=== PATIENT | female | born 1995 | race Caucasian/White ===

== ENCOUNTER 2021-07-08 09:06 | Emergency (ER) | payer OTHER, SELFPAY ==
[2021-07-08] VITALS (25 sets, daily range): BP systolic 112–139; BP diastolic 62–92; PULSE 74–96; RESP 13–21; TEMP 37.1; O2SAT 98–100
--- NOTE | ~2021-07-08 | XR_ITS ---
EXAMINATION: XR chest 1V portable DATE: 07/08/2021 11:00 INDICATION: Fever and fatigue TECHNIQUE: frontal view of the chest was obtained. COMPARISON: Chest radiograph dated 02/08/2015 FINDINGS: The lungs remain clear with no focal airspace opacities, pulmonary edema, pleural effusion or pneumot horax. The cardiomediastinal silhouette is normal. Mild thoracic dextrocurvature. IMPRESSION: 1. No acute cardiopulmonary disease. Reviewed, dictated and finalized at location A.
--- NOTE | 2021-07-08 09:40 | ECG_ITS ---
Measurements Intervals [place] Rate: 70 P: 23 [place]: 189 QRS: 31 QRSD: 87 T: 8 QT: 369 QTc: 400 Interpretive Statements SINUS RHYTHM MINIMAL Q WAVES- INFERIOR LEADS BORDERLINE ST-T WAVE ABNORMALITY- INFERIOR LEADS BORDERLINE ECG Electronically Signed On 07-08-2021 11:28:06 CDT by Suresh Rand D.O.
--- NOTE | 2021-07-08 09:40 | PC.NURSE ---
EDP at bedside to assess pt.
--- NOTE | 2021-07-08 09:51 | ED.GENADULT ---
HPI - General Adult General Chief complaint: Unspecified Stated complaint: Multiple Complaints, Weird Symptoms Time Seen by Provider: 07/08/21 09:14 Source: patient Mode of arrival: ambulatory Limitations: no limitations History of Present Illness HPI narrative: This is a 25 year old female that presents to the ER with multiple complaints. Ongoing since yesterday. Reports low grade fevers, fatigue, myalgias, lightheadedness and right sided flank pain. Reports the pain feels more superficial, like her skin is sensitive and radiates into her RLQ. Does report she did an at home COVID test which was negative. She is COVID vaccinated, she is not influenza vaccinated. Denies sore throat, cough, vomiting, dysuria or hematuria. Related Data Allergies Allergy/AdvReac Type Severity Reaction Status Date / Time No Known Allergies Allergy Unknown Verified 07/08/21 09:37 Review of Systems Review of Systems: CONSTITUTIONAL: Reports fever ENT: Denies congestion, sore throat RESPIRATORY: Denies cough or dyspnea. GASTROINTESTINAL: Reports abdominal pain. Denies nausea, vomiting, or diarrhea. GENITOURINARY: Denies dysuria or hematuria. SKIN: Denies rash MUSCULOSKELETAL: Reports myalgia. All systems reviewed & are unremarkable except as noted in HPI and below PMFSH Past Medical History Medical History (Updated 07/08/21 @ 12:33 by Tete Cotter PA-C) History of acne Social History Social History (Updated 07/08/21 @ 09:56 by Tete Cotter PA-C) Smoking status: Never smoker Alcohol intake: never Substance use: never Exam Narrative: GENERAL: Well-appearing, well-nourished, and in no acute distress. HEAD: Normocephalic, atraumatic. EYES: EOMI. CHEST: Clear to auscultation. No respiratory distress. No wheezes rales or rhonchi HEART: Regular rate and rhythm. No murmur heard. Normal peripheral pulses. ABDOMEN: Soft, nondistended, normal active bowel sounds. Mild tenderness to palpation in the RLQ, without guarding EXTREMITIES: Normal range of motion. No edema. SKIN: Warm, dry, no rash. NEURO: No focal deficits. Alert and oriented x3. PSYCH: Normal mood and affect Course Vital Signs Vital signs: Vital Signs Temperature 98.7 F 07/08/21 09:27 Pulse Rate 87 07/08/21 09:27 Respiratory Rate 14 07/08/21 09:27 Blood Pressure 118/80 07/08/21 09:27 Pulse Oximetry 99 07/08/21 09:27 Temperature 98.7 F 07/08/21 09:27 Pulse Rate 75 07/08/21 12:27 Respiratory Rate 13 07/08/21 12:27 Blood Pressure 126/68 07/08/21 11:20 Pulse Oximetry 100 07/08/21 12:27 Medical Decision Making MDM Narrative Medical decision making narrative: Patient presents to the emergency department with multiple complaints. Reporting fevers, myalgias, fatigue, and some right-sided flank pain. She is afebrile and nontoxic-appearing. Her vitals are stable. CBC shows leukopenia. Metabolic panel and lipase without concerning findings. UA without evidence of infection. Influenza, COVID and mono screens were negative. Bedside test is negative. Chest x-ray without acute cardiopulmonary abnormality. Patient did refuse CT scan of the abdomen and pelvis to further delineate cause of right-sided flank pain. Spoke with patient about reasoning for doing so. She reports she will return for any worsening symptoms. Spoke with patient about continued management of likely viral infection. She is to follow-up with primary care doctor. She was given warnings to return to the ER Vital Signs Vital Signs: Vital Signs Temperature 98.7 F 07/08/21 09:27 Pulse Rate 87 07/08/21 09:27 Respiratory Rate 14 07/08/21 09:27 Blood Pressure 118/80 07/08/21 09:27 Pulse Oximetry 99 07/08/21 09:27 Temperature 98.7 F 07/08/21 09:27 Pulse Rate 75 07/08/21 12:27 Respiratory Rate 13 07/08/21 12:27 Blood Pressure 126/68 07/08/21 11:20 Pulse Oximetry 100 07/08/21 12:27 Lab Data Lab results reviewed: Yes I
[2021-07-08 10:01] LABS: Eosinophils Absolute Auto 0.2 K/mm3 (0-0.3); Eosinophils Percent Auto 3.9 % (0-4.4); Hematocrit 46.1 % (37.0-47.0); Hemoglobin 14.8 g/dL (12.0-15.0); Immature Granulocyte Absolute 0.01 K/mm3 (0.00-0.031); Immature Granulocyte Percent A 0.2 % (0-0.5); Lymphocytes Absolute Auto 1.09 K/mm3 (0.9-3.2); Lymphocytes Percent Auto 26.7 % (18.3-44.2); Mean Corpuscular HGB Conc 32.1 g/dl (32-36); Mean Corpuscular Hemoglobin 28.2 pg (26-34); Mean Corpuscular Volume 87.8 fl (80-100); Mean Platelet Volume 9.3 fl (7.4-10.4); Monocytes Absolute Auto 0.5 K/mm3 (0.1-0.6); Monocytes Percent Auto 13.2 % (2.6-8.5); Neutrophils Absolute Auto 2.2 K/mm3 (1.3-6.7); Platelet Count Result 229 k/mm3 (150-375); Red Blood Count 5.25 M/mm3 (4.2-5.4); White Blood Count 4.1 K/mm3 (4.5-10.0)
[2021-07-08] MEDS: SODIUM CHLORIDE 0.9% IV 1,000 ML 999 ML IV CONT (10:05)
[2021-07-08 10:12] LABS: Alanine Aminotransferase 25 U/L (6-35); Albumin Level 4.7 g/dL (3.5-5.1); Alkaline Phosphatase 95 U/L (38-126); Anion Gap 9 mmol/L (8-16); Aspartate Amino Transferase 28 U/L (14-36); Bilirubin,Total 0.2 mg/dL (0.2-1.3); Blood Urea Nitrogen 13 mg/dL (7-17); Carbon Dioxide 22 mmol/L (22-30); Chloride 106 mmol/L (98-107); Estimated CRCL calculation 92 ml/min; Estimated Glomerular Filt Rate > 60; Glucose 101 mg/dL (65-110); Lipase 77 U/L (23-300); Potassium 4.6 mmol/L (3.4-5.0); Sodium 137 mmol/L (137-145)
[2021-07-08 10:19] LABS: Bacteria Urine Trace /hpf; Mucus Urine Rare /lpf; Squamous Epithelial Cell Urine Occasional /hpf (Few); WBC Urine 0-3 /hpf
[2021-07-08 10:21] LABS: Appearance Urine Clear (Clear); Bilirubin Urine Negative (Negative); Color Urine Yellow (Yellow); Glucose Urine UA Negative (Negative); Ketones Urine Negative (Negative); Leukocyte Esterase Ur Trace LEU/UL (Negative); Nitrate Urine Negative (Negative); Protein Urine Negative (Negative); Urobilinogen Urine 0.2 mg/dL (<2.0)
[2021-07-08 10:23] LABS: Add Urine Microscopic? YES; Blood Urine Trace-Intact (Negative)
[2021-07-08 10:39] LABS: Influenza A QL RT-PCR Negative (Negative); Influenza B QL RT-PCR Negative (Negative); SARS-CoV-2 RNA PCR Negative
[2021-07-08 11:59] LABS: Monoscreen Negative (Negative); Negative Monotest Control Negative (Negative); Positive Monotest Control Positive (Positive)
--- NOTE | 2021-07-08 12:33 | PC.NURSE ---
Patient reports that she is feeling much better. Reports resolution of all symptoms at this time. States maybe it was just a 24 hour bug . Call-light within reach and family at bedside. Awaiting further orders or disposition.
== END 2021-07-08 12:47 | disposition home or self-care (01) ==
PROVIDERS: Physician Assistant; Emergency Provider Emergency Medicine
DX: B34.9 Viral infection, unspecified (principal); Z20.822 Contact with and (suspected) exposure to COVID-19
CPT/HCPCS: 36415; 71045; 80053; 81001; 81025; 83690; 85025; 86308; 87502; 93005; 96361; 96374; 99284; C9803; J0131; J7030; U0003; U0005

== ENCOUNTER 2022-03-06 10:42 | Outpatient (CLI) | payer OTHER, SELFPAY ==
--- NOTE | ~2022-03-06 | US_ITS ---
EXAMINATION: US axilla RT INDICATION: Painful lump of the right axilla TECHNIQUE: Targeted ultrasound is performed in the right axilla in the area of clinical concern. COMPARISON: None available FINDINGS: There appears to be a right axillary lymph node with normal morphology corresponding to the area of palpable concern. No suspicious cystic or solid mass is identified. IMPRESSION: 1. No suspicious sonographic correlate is identified for the reported palpable abnormality of concern . Further evaluation at this time should be based on clinical assessment. Continued follow-up physica l examination is recommended. BI-RADS Category 2: Benign finding(s). Reviewed, dictated and finalized at location A. IVABLE CLERK IMPRESSION: 1. No suspicious sonographic correlate is identified for the reported palpable abnormality of concern. Further evaluation at this time should be based on clin ical assessment. Continued follow-up physical examination is recommended. BI-RADS Category 2: Benign finding(s).
== END 2022-03-06 10:43 | disposition home or self-care (01) ==
DX: N63.10 Unspecified lump in the right breast, unspecified quadrant (principal)
CPT/HCPCS: 76882